=== PATIENT | male | born 1985 | race Caucasian/White ===

== ENCOUNTER 2016-10-16 21:00 | Emergency (ER) | payer OTHER ==
[2016-10-16 21:29] VITALS: BP 144/98
[2016-10-16] MEDS ORDERED: Lidocaine 2% PF * 5 ML VIAL ONE (21:44)
--- NOTE | 2016-10-16 21:51 | UC ---
Laceration HPI - HPI Summary HPI Summary: The patient comes in today for: 1. Laceration to the left distal thumb: Onset: 2 hours ago. Palliative/provocative: Manipulation makes it worse. Rest makes it better. Quality: Ache. Region: Left distal thumb. Severity: 08/21 Time: Constant. Associated symptoms: No bleeding. numb: Not much. Last tetanus vaccine: More than 10 years ago. * - History Of Current Complaint Chief Complaint: UCLaceration Stated Complaint: THUMB LACERATION Time Seen by Provider: 10/16/16 21:43 Hx Obtained From: Patient - Allergies/Home Medications Allergies/Adverse Reactions: Allergies Allergy/AdvReac Type Severity Reaction Status Date / Time No Known Allergies Allergy Verified 10/16/16 21:29 Home Medications: Home Medications Red Rice Supplement 10/16/16 [History] PMH/Surg Hx/FS Hx/Imm Hx Previously Healthy: Yes Endocrine History Of: Denies: Diabetes, Thyroid Disease, Hyperthyroidism, Hypothyroidism, Dyslipidemia Cardiovascular History Of: Denies: Cardiac Disorders, Hypertension, Pacemaker/ICD, Myocardial Infarction , Congestive Heart Failure, Atrial Fibrillation, Deep Vein Thrombosis, Bleeding Disorders Respiratory History Of: Reports: Asthma - "Very, very, very weak asthma." Inhaler use 1-2 times a year, Denies: COPD, Bronchitis, Pneumonia, Pulmonary Embolism GI/ History Of: Denies: Gastroesophageal Reflux, Ulcer, Gastrointestinal Bleed, Gall Bladder Disease, Kidney Stones, Diverticulitis, Renal Disease, Urosepsis Neurological History Of: Denies: TIA, CVA, Dementia, Seizures, Migraine Psychological History Of: Denies: Anxiety, Depression, Bipolar Disorder, Schizophrenia, Post Traumatic Stress Disorder Cancer History Of: Denies: Lung Cancer, Colorectal Cancer, Breast Cancer, Prostate Cancer, Cervical Cancer Other History Of: Negative For: HIV, Hepatitis B, Hepatitis C, Anticoagulant Therapy - Surgical History Surgical History: None - Family History Known Family History: Positive: Cardiac Disease, Hypertension - Social History Occupation: Employed Full-time Alcohol Use: None Substance Use Type: None Smoking Status (MU): Never Smoked Tobacco Review of Systems Constitutional: Negative Skin: Negative Eyes: Negative ENT: Negative Respiratory: Negative Cardiovascular: Negative Gastrointestinal: Negative Genitourinary: Negative All Other Systems Reviewed And Are Negative: Yes Physical Exam Triage Information Reviewed: Yes Appearance: Well-Appearing, No Pain Distress, Well-Nourished Vital Signs: Initial Vital Signs Temp 98.9 F 10/16/16 21:24 Pulse 86 10/16/16 21:24 Resp 18 10/16/16 21:24 BP 144/98 10/16/16 21:24 Pulse Ox 99 10/16/16 21:24 Vital Signs Reviewed: Yes Eyes: Positive: Conjunctiva Clear. Negative: Discharge ENT: Positive: Hearing grossly normal. Negative: Pharyngeal erythema, Nasal congestion, Nasal drainage, TM bulging, TM dull, TM red, Tonsillar swelling, Tonsillar exudate Dental: Negative: Gross Decay/Caries @, Dental Fracture @ Neck: Positive: Supple, Nontender, No Lymphadenopathy. Negative: Nuchal Rigidity Respiratory: Positive: Chest non-tender, Lungs clear, No respiratory distress, No accessory muscle use. Negative: Crackles, Wheezing, Expiration Cardiovascular: Positive: RRR, No Murmur Abdomen Description: Positive: Nontender, No Organomegaly, Soft. Negative: Distended, Guarding, Peritoneal Signs Musculoskeletal: Positive: Strength Intact, ROM Intact, No Edema Neurological: Positive: Alert, Muscle Tone Normal Psychological: Positive: Age Appropriate Behavior, Consolable Skin: Positive: Other - He has a 2 cm laceration to the pad of the left thumb.. Negative: rashes, breakdown Laceration Repair - Laceration Repair 1 Description: Linear Laceration Size After Repair: Length (cm) - 2, Width (mm) - 4, Depth (mm) - 4 Modified For Repair: No Anesthesia Used: 2.0% Lido Cleansing Completed Via Routine Prep: Yes Irrigation With Pressure Irrigation Device: Yes Closure Material: Sutures Closure Method: Single Layer Suture Of: Skin - Eight 4-0 sutures in the left thumb. Laceration Course/Dx - Differential Dx - Laceration/Wound Differental Diagnoses: Laceration Provider Diagnoses: Laceration of the pad of the left thumb. Discharge - Discharge Plan Condition: Stable Disposition: HOME Patient Education Materials: Finger Laceration (ED), Care For Your Stitches (ED ) Additional Instructions: See your primary care provider, or us or the [facility] in 12 -14 days for suture removal. Inspect the area daily watching for increased redness, tenderness, swelling or drainage. Gently clean the area with a mild soap such as Dove (without any scents or colorings) and apply Polysporin ointment to the wound. Cover with a non-stick dressing ( Telfa) for the rest of the day. When resting, you may expose the wound to light and air, but not direct sunlight. If there is any oozing, apply pressure. Apply cold compresses to the area for the first 1-2 days. Use [id number] pain medications as needed for pain. Cold compresses can help with pain reduction also. Keep the thumb elevated when possible particularly when sleeping. YOu may also use Ranjeet's Baby Shampoo to clear the area. Use cold compresses or [id number] medications as needed for pain control.
[2016-10-16] MEDS ORDERED: Tetan/Diph/Pertus SYR(Tdap)* 0.5 ML SYR(BOOSTRIX) use SYR IM ONE (22:21)
== END 2016-10-16 23:07 | disposition home or self-care (01) ==
LOC: UCEAST 21:00
DX: S61.012A Laceration without foreign body of left thumb without damage to nail, initial encounter (principal); X58.XXXA Exposure to other specified factors, initial encounter; Y93.9 Activity, unspecified; Y92.9 Unspecified place or not applicable; Z23 Encounter for immunization
CPT/HCPCS: 12001; 90471; 90715; 99201; G0463

== ENCOUNTER 2016-10-27 09:45 | Emergency (ER) | payer OTHER ==
[2016-10-27 10:12] VITALS: BP 140/80
--- NOTE | 2016-10-27 11:03 | UC ---
Skin Complaint HPI - History of Current Complaint Chief Complaint: UCLaceration Stated Complaint: SUTURE REMOVAL Hx Obtained From: Patient Onset/Duration: Sudden Onset - 14 days ago was cut on tuna can lid and sustain lac to L thumb which required 8 sutures. states his cut is healing well, no swelling or pus discharge. has been using bacitracin and bandaid qd, Tdap is UTD Current Severity: None Aggravating: Nothing Alleviating: Nothing Associated Signs & Symptoms: Positive: Negative - Allergy/Home Medications Allergies/Adverse Reactions: Allergies Allergy/AdvReac Type Severity Reaction Status Date / Time No Known Allergies Allergy Verified 10/27/16 10:08 Review of Systems Constitutional: Negative Skin: Other - SR Respiratory: Negative Cardiovascular: Negative Musculoskeletal: Negative Neurological: Negative Psychological: Negative All Other Systems Reviewed And Are Negative: Yes PMH/Surg Hx/FS Hx/Imm Hx Previously Healthy: Yes Endocrine History Of: Denies: Diabetes, Thyroid Disease, Hyperthyroidism, Hypothyroidism, Dyslipidemia Cardiovascular History Of: Denies: Cardiac Disorders, Hypertension, Pacemaker/ICD, Myocardial Infarction , Congestive Heart Failure, Atrial Fibrillation, Deep Vein Thrombosis, Bleeding Disorders Respiratory History Of: Reports: Asthma - "Very, very, very weak asthma." Inhaler use 1-2 times a year, Denies: COPD, Bronchitis, Pneumonia, Pulmonary Embolism GI/ History Of: Denies: Gastroesophageal Reflux, Ulcer, Gastrointestinal Bleed, Gall Bladder Disease, Kidney Stones, Diverticulitis, Renal Disease, Urosepsis Neurological History Of: Denies: TIA, CVA, Dementia, Seizures, Migraine Psychological History Of: Denies: Anxiety, Depression, Bipolar Disorder, Schizophrenia, Post Traumatic Stress Disorder Cancer History Of: Denies: Lung Cancer, Colorectal Cancer, Breast Cancer, Prostate Cancer, Cervical Cancer Other History Of: Negative For: HIV, Hepatitis B, Hepatitis C, Anticoagulant Therapy - Surgical History Surgical History: None - Family History Known Family History: Positive: Cardiac Disease, Hypertension - Social History Occupation: Student Lives: Alone Alcohol Use: None Substance Use Type: None Smoking Status (MU): Never Smoked Tobacco - Immunization History Most Recent Tetanus Shot: 10/16/16 Vaccination Up to Date: Yes Physical Exam Triage Information Reviewed: Yes Appearance: Well-Appearing, No Pain Distress, Well-Nourished Vital Signs: Initial Vital Signs Temp 98.1 F 10/27/16 10:09 Pulse 85 10/27/16 10:09 Resp 16 10/27/16 10:09 BP 140/80 10/27/16 10:09 Pulse Ox 100 10/27/16 10:09 Vital Signs Reviewed: Yes Respiratory Exam: Normal Cardiovascular Exam: Normal Musculoskeletal: Positive: Strength Intact, ROM Intact Psychological Exam: Normal Skin Exam: Other - well healing, well approximated laceratrion L thumb with 8 sutures intact. no evidence of infection Course/Dx - Course Course Of Treatment: 8 sutures removed w/o diff L thumb lac. wound edges remain well approximated, no bleeding. sterile dressing applied - Differential Diagnoses - Skin Complaint Differential Diagnoses: Cellulitis, Other - healing laceration - Diagnoses Provider Diagnoses: Suture removal-well healing laceration Discharge - Discharge Plan Condition: Good Disposition: HOME Patient Education Materials: Stitches Removal (ED) Referrals: [facility] ELFEGO Vizcarar [Primary Care Provider] - Additional Instructions: keep wound clean and dry report redness, swelling or increasing pain
== END 2016-10-27 11:05 | disposition home or self-care (01) ==
LOC: UCEAST 09:45
DX: Z48.02 Encounter for removal of sutures (principal)
CPT/HCPCS: 99211; G0463

== ENCOUNTER 2019-08-31 12:26 | Emergency (ER) | payer OTHER ==
[2019-08-31 12:45] VITALS: BP 139/80
--- NOTE | 2019-08-31 13:09 | UC ---
Cardiac HPI - HPI Summary HPI Summary: 33-year-old male presents with complaints of intermittent left sided chest pain for the past several days. Describes the pain as a "pressure". Yesterday he had an episode of sharp stabbing left-sided chest pain that lasted for approximately 15 minutes. States it came on suddenly while he was sitting. This morning he has had persistent left-sided chest pressure. Reports he occasionally uses lightheaded. No personal history of coronary artery disease. Reports possible history of heart disease in both his paternal and maternal grandfathers. Reports that his paternal grandfather may have had history of AAA. Patient does have history of GERD although denies any symptoms at this time. Denies fever, chills, palpitations, diaphoresis, cough, shortness of breath, abdominal pain, nausea, or vomiting. - History of Current Complaint Chief Complaint: UCChestPain Stated Complaint: CHEST PAIN Time Seen by Provider: 08/31/19 12:34 Pain Intensity: 5 - Allergy/Home Medications Allergies/Adverse Reactions: Allergies Allergy/AdvReac Type Severity Reaction Status Date / Time No Known Allergies Allergy Verified 10/27/16 10:08 PMH/Surg Hx/FS Hx/Imm Hx GI/ History: Gastroesophageal Reflux Other History Of: Negative For: HIV, Hepatitis B, Hepatitis C, Anticoagulant Therapy - Surgical History Surgical History: None - Family History Known Family History: Positive: Cardiac Disease, Hypertension, Other - Possible AAA - Social History Occupation: Employed Full-time Lives: With Family Alcohol Use: None Substance Use Type: None Smoking Status (MU): Never Smoked Tobacco - Immunization History Most Recent Tetanus Shot: 10/16/16 Vaccination Up to Date: Yes Review of Systems All Other Systems Reviewed And Are Negative: Yes Constitutional: Negative: Fever, Chills Skin: Negative: Rash ENT: Positive: Negative Respiratory: Negative: Shortness Of Breath, Cough Cardiovascular: Positive: Chest Pain. Negative: Palpitations Gastrointestinal: Negative: Abdominal Pain, Vomiting, Nausea Genitourinary: Positive: Negative Musculoskeletal: Negative: Negative Neurological: Negative: Negative Is Patient Immunocompromised?: No Physical Exam - Summary Physical Exam Summary: GENERAL APPEARANCE: Well developed, well nourished, alert and cooperative, and appears to be in no acute distress. EYES: Conjunctiva clear. No drainage. EARS: External auditory canals and tympanic membranes clear, hearing grossly intact. NOSE: No nasal discharge. THROAT: Pharynx normal No tonsilar inflammation, swelling, exudate, or lesions. Uvula midline. NECK: Neck supple, non-tender without lymphadenopathy. CARDIAC: Normal S1 and S2. No S3, S4 or murmurs. Rhythm is regular. There is no peripheral edema, cyanosis or pallor. Extremities are warm and well perfused. Capillary refill is less than 2 seconds. Peripheral pulses intact. LUNGS: Clear to auscultation without rales, rhonchi, wheezing or diminished breath sounds. ABDOMEN: Positive bowel sounds. Soft, nondistended, nontender. No guarding or rebound. No masses or hepatosplenomegally. MUSKULOSKELETAL: ROM intact to all extremities. No joint erythema or tenderness. Normal muscular development. Normal gait. SKIN: Skin normal color, texture and turgor with no lesions or eruptions. Triage Information Reviewed: Yes Vital Signs: Initial Vital Signs Temp 98.8 F 08/31/19 12:43 Pulse 84 08/31/19 12:43 Resp 20 08/31/19 12:43 BP 139/80 08/31/19 12:43 Pulse Ox 99 08/31/19 12:43 Vital Signs Reviewed: Yes Diagnostics - EKG Cardiac Rate: NL Cardiac Rhythm: Sinus: Normal Ectopy: None ST Segment: Normal Summary of EKG Findings: NSR at rate of 88. No ST elevation, ectopy, or T-wave abnormalities noted. No previous EKG for comparison. - Assessment/Plan Course Of Treatment: 33-year-old male presents with complaints of intermittent left sided chest pain for the past several days. Describes the pain as a "pressure". Yesterday he had an episode of sharp stabbing left-sided chest pain that lasted for approximately 15 minutes. States it came on suddenly while he was sitting. This morning he has had persistent left-sided chest pressure. Reports he occasionally uses lightheaded. No personal history of coronary artery disease. Reports possible history of heart disease in both his paternal and maternal grandfathers. Reports that his paternal grandfather may have had history of AAA. Patient does have history of GERD although denies any symptoms at this time. Denies fever, chills, palpitations, diaphoresis, cough, shortness of breath, abdominal pain, nausea, or vomiting. Afebrile. Mildly hypertensive otherwise vital signs stable. Patient's exam was overall unremarkable. Twelve- lead EKG showed normal sinus rhythm without ST elevation, ectopy, or T-wave abnormalities. I reviewed these results with the patient and we discussed that although the EKG appears normal I cannot fully exclude the possibility of his symptoms being of cardiac origin at this time and I'm recommending that he be evaluated in the emergency room. Patient was agreeable to this and plans to transport via private vehicle. - Differential Diagnoses - Chest Pain Differential Diagnosis/HQI/PQRI: Acute AK, ACS, Aortic Aneurysm, Chest Wall, GI Disease, Lower Respiratory Infection - Clinical Impression Provider Diagnosis: Chest pain Discharge ED - Sign-Out/Discharge Documenting (check all that apply): Patient Departure All imaging exams completed and their final reports reviewed: No Studies - Discharge Plan Condition: Stable Disposition: HOME Patient Education Materials: Chest Pain (ED) Referrals: Theodore Pacheco MD [Primary Care Provider] - Additional Instructions: The 12-lead EKG that was performed in the clinic today was normal however I cannot fully exclude at this time that your symptoms are not cardiac in origin therefore I am recommending that she go to the emergency room for further evaluation at this time. Please go directly to the emergency room from here for evaluation. - Billing Disposition and Condition Condition: STABLE Disposition: Home - Attestation Statements Provider Attestation: I was available for consult. This patient was seen by the GEOVANNA. The patient was not presented to, seen by, or examined by me. -Nicholas
== END 2019-08-31 13:21 | disposition home or self-care (01) ==
LOC: UCEAST 12:26
DX: R07.9 Chest pain, unspecified (principal); I10 Essential (primary) hypertension
CPT/HCPCS: 99211; G0463